=== PATIENT | male | born 1950 | race Hispanic/Latino ===

== ENCOUNTER 2017-04-19 16:21 | Observation (INO) | payer MEDICARE ==
[2017-04-19] MEDS ORDERED: POTASSIUM CHLORIDE 20 MEQ TABLET.SA PO ONE ×3 (16:54→22:51)
[2017-04-19] MEDS ORDERED: POTASSIUM CHLORIDE 20 MEQ TABLET.SA ONE (17:01)
[2017-04-19] MEDS: POTASSIUM CHLORIDE 100 ML IV SCH ×4 (17:07→20:31)
[2017-04-19] MEDS ORDERED: NORMAL SALINE 1,000 ML IV PRN (17:08)
[2017-04-19 17:13] LABS: Magnesium 1.9 mg/dL (1.2-2.8); Troponin I Less than 0.017 ng/ml (0.00-0.10)
--- NOTE | 2017-04-19 17:27 | ERNOTE ---
Medical Problem HPI - General Chief Complaint: General Assessment Time Seen by Provider: 04/19/17 16:27 Source: patient - Immun/Allergies/Home Medications Immunizations: IMMUNIZATION HX Immunizations Up to Date Yes History of Influenza Vaccine Yes Hx Pneumococcal Vaccination No Allergies/Adverse Reactions: Allergies No Known Allergies Allergy (Verified 07/02/15 09:14) Home Medications: HOME MEDICATIONS Aspirin [Aspirin Enteric Coated] 81 mg PO DAILY 11/10/14 [Last Taken Unknown] Esomeprazole Magnesium [Nexium] 20 mg PO DAILY 11/10/14 [Last Taken Unknown] Metoprolol Tartrate 100 mg PO BID 11/10/14 [Last Taken Unknown] Furosemide [Lasix] 80 mg PO DAILY@1100 #30 tablet 11/17/14 [Last Taken 07/01/15] ALPRAZolam [Xanax] 0.25 mg PO DAILY 07/02/15 [Last Taken Unknown] HYDROcodone/ACETAMINOPHEN [[place] 5-325 Tablet] 1 tab PO Q4H PRN 07/02/15 [Last Taken Unknown] Cholecalciferol (Vitamin D3) [Vitamin D3] 1,000 unit PO DAILY 04/19/17 [Last Taken Unknown] Cyanocobalamin (Vitamin B-12) [Vitamin B12] 1,000 mcg PO DAILY 04/19/17 [Last Taken Unknown] - History of Present History Narrative: Patient had been in a flare of his congestive heart failure, he was aggressively diuresed by Dr. Tan. Due the course of this diuresis his potassium inadvertently fell to 1.9. He now feels somewhat weak and Dr. Tan sent him into emergency department for evaluation and possible admission. Timing: constant Severity: moderate Review of Systems - Review of Systems Constitutional: Present: See HPI, weakness EYE: Present: no symptoms reported ENT: Present: no symptoms reported Respiratory: Present: no symptoms reported Cardiology: Present: no symptoms reported Gastrointestinal/Abdominal: Present: no symptoms reported Genitourinary: Present: no symptoms reported Musculoskeletal: Present: no symptoms reported Skin: Present: no symptoms reported Neurological: Present: no symptoms reported Endocrine: Present: no symptoms reported Hematologic/Lymphatic: Present: no symptoms reported Psych: Present: no symptoms reported - Patient's Past Medical History Patient History - Medical: Other Patient History - Cardiac/Respiratory: CHF, Hypertension Patient History - Cancer: Colon Patient History - Surgical Procedures: Colonoscopy, Total Knee Replacement Patient History - Other: None - Family History Mother Family History - Medical: Family History - Cardiac/Respiratory: COPD Father Family History - Medical: Family History - Cardiac/Respiratory: Aneurysm - Social History Living Situations: home Abuse History: No History of abuse Psych History: No pertinent hx Smoking Status: Former smoker Have you smoked in the past 12 months: No Do you dip or chew tobacco: No Alcohol Use: occasionally Drug Use: none - Immunizations Immunizations Up to Date: Yes Hx Pneumococcal Vaccination: No History of Influenza Vaccine: Yes Physical Exam - Physical Exam General Appearance: Present: wd/wn, alert, mild distress Eye Exam: Normal inspection: bilateral, PERRL: bilateral Ears, Nose, Throat: Present: normal ENT inspection, H, normal pharynx Neck: Present: normal inspection, nontender Respiratory: Present: no respiratory distress, normal breath sounds, no accessory muscle use, chest nontender, lungs clear Cardiovascular/Chest: Present: regular rate, rhythm, no murmur, normal peripheral pulses Gastrointestinal/Abdominal: Present: normal bowel sounds, nontender, nondistended, soft, no organomegaly Rectal Exam: Present: deferred Back Exam: Present: normal inspection, normal range of motion Extremity Exam: Present: normal inspection, non-tender, no edema, normal range of motion Neurological Exam: Present: alert, oriented, normal mood/affect Skin Exam: Present: normal color, warm/dry Lymphatic Exam: Present: no adenopathy ED Progress - Results and Orders Patient's Lab Results:: I have reviewed the patient's lab results. - Vital Signs Patient's Vital Signs:: I have reviewed the patient's vital signs. Vital Signs: Vital Signs 04/19/17 16:40 Temperature 36.7 C Pulse Rate 66 Respiratory 13 Rate Blood Pressure 152/84 O2 Sat by Pulse 95 Oximetry - EKG EKG: NSR EKG read: Reviewed by me - Progress/Reassessment Chief Complaint: General Assessment Plan - Plan Plan: Given the fact that the patient has been having some weakness and he has some subtle T-wave changes as well as some questionable U waves on the EKG patient will be admitted for progressive replacement of his potassium. Departure - Departure Clinical Impression: Hypokalemia Disposition: [facility] Condition: Fair Referrals: Amrit Tan MD [Primary Care Provider] - - Critical Care Total Time (mins): 35 Critical Care: Patient will require fairly aggressive replacement of his potassium. Patient was given 40 meq by mouth here and a total of 40 mEq over 4 separate riders were ordered hears well. He she'll be admitted to a monitored bed on the floor for continuing care by Dr. Alexander.
[2017-04-19] MEDS ORDERED: ALPRAZolam 0.25 MG TABLET PO PRN (20:16)
[2017-04-19] MEDS ORDERED: HYDROcodone/ACETAMINOPHEN 1 EACH TABLET PO PRN (20:16)
[2017-04-19] MEDS: METOPROLOL TARTRATE 100 MG TABLET PO SCH (21:15)
--- NOTE | 2017-04-19 21:15 | HP ---
Chief Complaint - Chief Complaint Date of Service: 04/19/17 Time of Service: 19:20 Chief Complaint: Hypokalemia History of Present Illness: 66 years old male adm to the hospital from ER with reports of hypokalemia. PMH significant for Hypertension, GERD, Arthritis, depression and pulmonary vascular congestion seen on CXR. Per pt last week he was having increased shortness of breath, swelling in hands and feet. He had CXR that showed pulmonary congestion. He was initiated on additional dose of diuretic x5 days. However during regimen he was feeling dizzy and continue to have shortness of breath but the swelling had resolved. 04/19/17 he had repeated BMP and CXR: ongoing pulmonary vascular congestion.Pt stated he was instructed by his doctor to come to the ER, his potassium 1.9. In ER Potassium level supplemented, will adm for observation, continue with potassium replacement and monitor on telemetry. - Patient's Past Medical History Patient History - Medical: Alcohol Abuse, Arthritis, Depression, GERD, Obesity Patient History - Cardiac/Respiratory: Hypertension Patient History - Cancer: Colon Patient History - Surgical Procedures: Colonoscopy, Total Knee Replacement - Right knee Patient History - Other: None - Family History Mother Family History - Medical: Family History - Cardiac/Respiratory: COPD Family History - Cancer: Lymphoma Father Family History - Medical: Family History - Cardiac/Respiratory: Aneurysm - Social History Living Situations: significant other Abuse History: No History of abuse Psych History: Hx of Anxiety, Hx of Depression Does anyone smoke in the home?: No Smoking Status: Never smoker Have you smoked in the past 12 months: No Do you dip or chew tobacco: No Alcohol Use: occasionally - daily 4-6 beers Drug Use: none - Immunizations Immunizations Up to Date: Yes Hx Pneumococcal Vaccination: No History of Influenza Vaccine: Yes Review Of Systems (GEN) - Review of Systems Generalized/Overall Review: Present: No Symptoms Reported EENTM: Present: No Symptoms Reported Respiratory: Present: Shortness of Breath Cardiac: Present: No Symptoms Reported Abdominal: Present: No Symptoms Reported Genitourinary: Present: No Symptoms Reported Musculoskeletal: Present: No Symptoms Reported Neurological: Present: Weakness, Other - dizziness Skin: Present: No Symptoms Reported Endocrine: Present: No Symptoms Reported Immunizations: IMMUNIZATION HX Immunizations Up to Date Yes History of Influenza Vaccine Yes Hx Pneumococcal Vaccination No Allergies/Adverse Reactions: Allergies Allergy/AdvReac Type Severity Reaction Status Date / Time No Known Allergies Allergy Verified 07/02/15 09:14 Home Medications: HOME MEDICATIONS Aspirin [Aspirin Enteric Coated] 81 mg PO DAILY 11/10/14 [Last Taken Unknown] Metoprolol Tartrate 100 mg PO BID 11/10/14 [Last Taken Unknown] Furosemide [Lasix] 80 mg PO DAILY@1100 #30 tablet 11/17/14 [Last Taken 07/01/15] ALPRAZolam [Xanax] 0.25 mg PO DAILY PRN 07/02/15 [Last Taken Unknown] HYDROcodone/ACETAMINOPHEN [[place] 5-325 Tablet] 1 tab PO Q4H PRN 07/02/15 [Last Taken Unknown] Amlodipine Besylate 5 mg PO DAILY 04/19/17 [Last Taken Unknown] Cholecalciferol (Vitamin D3) [Vitamin D3] 1,000 unit PO DAILY 04/19/17 [Last Taken Unknown] Cyanocobalamin (Vitamin B-12) [Vitamin B12] 500 mcg PO DAILY 04/19/17 [Last Taken Unknown] Escitalopram Oxalate [Lexapro] 20 mg PO DAILY 04/19/17 [Last Taken Unknown] Hydrochlorothiazide 12.5 mg PO DAILY 04/19/17 [Last Taken Unknown] Omeprazole 40 mg PO DAILY 04/19/17 [Last Taken Unknown] Potassium Chloride [Klor-Con M20] 40 meq PO DAILY 04/19/17 [Last Taken Unknown] Exam - Exam Vital Signs: Vital Signs - Last Taken Temp 36.6 C 04/19/17 18:50 Pulse 66 04/19/17 18:50 Resp 18 04/19/17 18:50 BP 125/68 04/19/17 18:50 Pulse Ox 93 04/19/17 18:50 Constitutional: Present: Alert, Oriented x3, Cooperative, Middle aged, Morbidly obese ENT Exam: Present: normal ENT inspection Eye Exam: bilateral eye: normal inspection Neck: Present: full range of motion Back Exam: Present: normal inspection Breasts: Present: Exam deferred Respiratory: Present: normal breath sounds Cardiovascular/Chest: Present: normal peripheral pulses, no chest tenderness, bradycardia Peripheral Pulses: dorsalis-pedis (R): 3+, dorsalis-pedis (L): 3+ Abdomen: Present: Normal bowel sounds, soft, nontender, nondistended /Rectal: Present: Exam deferred Extremity: Present: normal range of motion, non-tender, normal inspection Skin Exam: Present: normal color, warm/dry Lymphatic: Present: no adenopathy Neurologic: Present: oriented x 3 Appearance: Present: appropriate appearance, appropriate insight Eye contact: Present: cooperative, good eye contact Thoughts: Present: normal thought pattern Diagnostic Studies: Laboratory Results Magnesium 1.9 mg/dL (1.2-2.8) 04/19/17 14:35 Troponin I Less than 0.017 ng/ml (0.00-0.10) 04/19/17 14:35 CXR: On going cardiomegaly and pulmonary vascular congestion. Assessment/Plan - Narrative Narrative: Hypokalemia- secondary to aggressive diuresis Pt stated he was given HCTZ x 5days and potassium 40meq daily due to increased swellings to hands and legs pt completed regimen with repeated potassium level 1.9, mag 1.9 04/19/17 Repeated CXR: Ongoing cardiomegaly and pulmonary vascular congestion. Supplemented with IV KCL, continue monitoring and repeat EKG Continue on telemetry Hold Lasix Hypertension Monitor vital signs Q shift and as indicated may resume home dose of medications Will Hold Lasix and continue Lopressor Depression- stable Continue with home dose of Lexapro GERD Continue with omeprazole Alcohol abuse pt state he drink 4-6 beers daily Alcohol cessation edu provided [facility] protocol Code status: Full code GI ppx: Omeprazole DVT ppx: ambulate Time 35 minutes - Assessment/Plan (1) Hypokalemia Problem: Acute (2) GERD (gastroesophageal reflux disease) Problem: Chronic (3) Depression Problem: Chronic (4) Hypertension Problem: Chronic (5) Alcohol abuse Problem: Chronic
[2017-04-19 22:07] LABS: Magnesium 1.8 mg/dL (1.2-2.8)
[2017-04-19 22:12] LABS: Potassium 2.1 mmol/L (3.4-4.6)
[2017-04-19] MEDS ORDERED: POTASSIUM CHLORIDE 20 MEQ in NORMAL SALINE 1,000 ML IV PRN (22:17)
[2017-04-19] MEDS ORDERED: MAGNESIUM OXIDE 400 MG TABLET PO SCH (22:20)
[2017-04-19] MEDS ORDERED: POTASSIUM CHLORIDE 40 MEQ in NORMAL SALINE 1,000 ML IV SCH (22:30)
[2017-04-19] MEDS ORDERED: POTASSIUM CHLORIDE 20 MEQ in NORMAL SALINE 1,000 ML IV SCH (22:30)
[2017-04-20 06:34] LABS: Anion Gap 7.5 mmol/L (6.8-13.8); BUN/Creatinine Ratio 12.5 (9.0-21.6); Calcium * 8.5 mg/dL (7.9-10.9); Carbon Dioxide 35.6 mmol/L (24-32.6); Estimated Creat Clear 65.6; Magnesium 1.9 mg/dL (1.2-2.8)
[2017-04-20 06:37] LABS: Hematocrit 35.3 % (42.0-52.0); Hemoglobin 12.8 gm/dL (13.5-18.0); Mean Cell Volume 89.4 fl (78-100); Mean Corpuscular Hemoglobin 32.4 pg (27-31); Mean Corpuscular Hgb Conc 36.3 g/dl (32-36); Mean Platelet Volume 10.5 fl (6.0-9.5); Neutrophil # 7.2 K/mm3 (1.3-6.0); Neutrophil % 70.2 % (42-75.0); Platelet Count 290 K/mm3 (150-450); Red Blood Count 3.95 M/mm3 (4.7-6.0); Red Cell Distribution Width 13.2 % (11.5-14.0); White Blood Count 10.3 K/mm3 (4.0-10.5)
[2017-04-20 06:42] LABS: Potassium 2.1 mmol/L (3.4-4.6)
[2017-04-20] MEDS ORDERED: PANTOPRAZOLE SODIUM 40 MG TABLET.EC PO SCH (07:00)
[2017-04-20] MEDS: POTASSIUM CHLORIDE 100 ML IV SCH ×2 (07:41→08:58)
[2017-04-20] MEDS ORDERED: POT CHLORIDE/POT BICARB/CIT AC 25 MEQ TABLET.EFF PO ONE (08:20)
[2017-04-20] MEDS ORDERED: amLODIPine BESYLATE 5 MG TABLET PO SCH (09:00)
[2017-04-20] MEDS ORDERED: CHOLECALCIFEROL 1,000 UNIT CAPSULE PO SCH (09:00)
[2017-04-20] MEDS ORDERED: POTASSIUM CHLORIDE 20 MEQ TABLET.SA PO SCH ×2 (09:00)
[2017-04-20] MEDS ORDERED: CYANOCOBALAMIN 1,000 MCG TABLET PO SCH (09:00)
[2017-04-20] MEDS ORDERED: ESCITALOPRAM OXALATE 10 MG TAB PO SCH (09:00)
[2017-04-20] MEDS ORDERED: ASPIRIN 81 MG TABLET.DR PO SCH (09:00)
[2017-04-20] MEDS: SPIRONOLACTONE 25 MG TABLET PO SCH ×2 (09:03→09:16)
[2017-04-20] MEDS: METOPROLOL TARTRATE 100 MG TABLET PO SCH (09:04)
[2017-04-20] MEDS: MAGNESIUM OXIDE 400 MG TABLET PO SCH ×2 (09:04→13:24)
[2017-04-20 14:16] LABS: Albumin * 2.7 gm/dl (3.4-5.0); Anion Gap 2.8 mmol/L (6.8-13.8); BUN/Creatinine Ratio 13.8 (9.0-21.6); Bilirubin, Total 0.8 mg/dL (0.0-1.1); Ca. Corrected For Albumin 9.4 mg/dL (8.4-10.2); Calcium * 8.7 mg/dL (7.9-10.9); Carbon Dioxide 40.7 mmol/L (24-32.6); Potassium 3.5 mmol/L (3.4-4.6); Total Protein 7.8 gm/dL (6.2-8.2)
[2017-04-20 14:39] VITALS: BP 129/68
--- NOTE | 2017-04-20 14:56 | DS ---
(1) Hypokalemia Problem: Acute Description of Stay: 66-year-old black male was admitted because of severe hypokalemia with potassium of 1.9 and sodium of 125 this was due to the diuretic that was used to treat CHF. EKG showed suspicious U-wave with normal QT. He was admitted to short stay and received potassium supplement. Potassium went up to 3.5 but sodium is still at 125 but he is asymptomatic and feeling better Procedures Performed: none Discharge Disposition: Home self care Disposition: Home self-care Condition: Fair Discharge Activity: Activity as tolerated Discharge Diet: Low salt Referrals: Amrit Tan MD [Primary Care Provider] - Additional Patient Instructions (free text): CMP in 1 week Follow-up with Dr. Tan in 3 weeks Prescriptions (Any new or edited meds): Spironolactone [Aldactone] 25 mg PO DAILY #30 tablet Complete Home Medications List: Complete Home Medication List: Aspirin [Aspirin Enteric Coated] 81 mg PO DAILY 11/10/14 Metoprolol Tartrate 100 mg PO BID 11/10/14 Furosemide [Lasix] 80 mg PO DAILY@1100 #30 tablet 11/17/14 ALPRAZolam [Xanax] 0.25 mg PO DAILY PRN 07/02/15 HYDROcodone/ACETAMINOPHEN [[place] 5-325 Tablet] 1 tab PO Q4H PRN 07/02/15 Amlodipine Besylate 5 mg PO DAILY 04/19/17 Cholecalciferol (Vitamin D3) [Vitamin D3] 1,000 unit PO DAILY 04/19/17 Cyanocobalamin (Vitamin B-12) [Vitamin B12] 500 mcg PO DAILY 04/19/17 Escitalopram Oxalate [Lexapro] 20 mg PO DAILY 04/19/17 Omeprazole 40 mg PO DAILY 04/19/17 Potassium Chloride [Klor-Con M20] 40 meq PO DAILY 04/19/17 Spironolactone [Aldactone] 25 mg PO DAILY #30 tablet 04/20/17
[2017-04-20] MEDS ORDERED: POTASSIUM CHLORIDE 40 MEQ in NORMAL SALINE 1,000 ML IV SCH (22:30)
== END 2017-04-20 15:29 | disposition home or self-care (01) ==
LOC: ER 16:21 → MS 17:18
PROVIDERS: ADMIT Internal Medicine; ATTEND Internal Medicine
DX: E87.6 Hypokalemia (principal); I50.9 Heart failure, unspecified; I10 Essential (primary) hypertension; F32.9 Major depressive disorder, single episode, unspecified; K21.9 Gastro-esophageal reflux disease without esophagitis; F10.10 Alcohol abuse, uncomplicated
CPT/HCPCS: 36415; 80048; 80053; 83735; 84132; 84484; 85025; 93005; 96365; 96366; 99285; G0378

== ENCOUNTER 2018-11-27 17:20 | Inpatient (IN) ==
[2018-11-27] MEDS ORDERED: POTASSIUM CHLORIDE 20 MEQ TABLET.SA PO ONE ×2 (17:52→23:30)
[2018-11-27] MEDS ORDERED: NORMAL SALINE 1,000 ML IV ONE ×2 (17:54→18:13)
[2018-11-27] MEDS: POTASSIUM CHLORIDE IN WATER 100 ML IV SCH ×4 (18:23→21:35)
--- NOTE | 2018-11-27 18:27 | ERNOTE ---
Medical Problem HPI - Narrative Date of Service: 11/27/18 - General Chief Complaint: General Assessment Time Seen by Provider: 11/27/18 17:43 Source: patient, RN/MD Exam Limitations: no limitations - Immun/Allergies/Home Medications Immunizations: IMMUNIZATION HX Immunizations Up to Date Yes History of Influenza Vaccine No Hx Pneumococcal Vaccination No Allergies/Adverse Reactions: Allergies No Known Allergies Allergy (Verified 11/27/18 17:40) Home Medications: HOME MEDICATIONS Aspirin [Aspirin Enteric Coated] 81 mg PO DAILY 11/10/14 [Last Taken Unknown] atorvastatin 20 mg tablet 20 mg PO DAILY #90 tab 07/05/18 [Last Taken Unknown] omeprazole 40 mg capsule,delayed release 40 mg PO DAILY #90 cap 07/05/18 [Last Taken Unknown] Metoprolol Tartrate 100 mg PO BID 11/27/18 [Last Taken Unknown] - History of Present History Narrative: This patient is a 68-year-old male who was sent in because of low potassium and sodium. Dr. Tan saw the patient about a week ago with what appeared to be a swollen and infected foot. He started him on Zaroxolyn in addition to his Lasix and potassium. The patient has lost weight. He came today for follow-up and labs were drawn. His potassium came back at 1.6. His sodium is 122. He has had no vomiting or diarrhea. He has a history of colon cancer long ago. He has had pelvic lymph node enlargement. He has no history of CHF. He has been falling daily the last 3 days. Review of Systems - Review of Systems Constitutional: Absent: fever, chills EYE: Absent: blurred vision, double vision ENT: Absent: ear pain, nose congestion, nasal drainage, sore throat Respiratory: Present: shortness of breath, cough Cardiology: Present: other - He has fainted or fallen daily last 3 days.. Absent: chest pain, palpitations Gastrointestinal/Abdominal: Absent: nausea, vomiting, diarrhea, constipation, abdominal pain Genitourinary: Absent: frequency, pain, dysuria, hematuria Musculoskeletal: Absent: joint pain Skin: Present: other - He had redness and warmth of his feet. He has no bruise under the right armpit. Neurological: Present: dizziness/light-headedness, weakness. Absent: anxiety, depressed, headache Endocrine: Present: other - He has had weight loss. 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 Gerardo, adenocarcinoma tubulovillous polyp, infiltrating submucosa, free margin of 1mm. History of total knee replacement Onset Date: 2000 right Status post epidural steroid injection Onset Date: 01/2006 FM[facility] L4-5 01/2006, 08/2007, 11/2007 Status post right knee replacement Onset Date: 11/2000 Family History: Family History (Last Reviewed 11/27/18 @ 18:24 by Champ Dai MD) Father Brain aneurysm, Onset Age: 71 age 71 Mother Cancer, Onset Age: 67 Cancer of Lymph nodes age 67 Sister Alive and well x1 Son Alive and well x2 Social History: Preferred Language [place] Do you have any hinduism or No cultural preference? Smoking Status Never smoker Abuse History No History of abuse Psych History Hx of Anxiety,Hx of Depression Alcohol Use heavy Drug Use none (Last Updated 11/27/18 @ 14:59 by Amrit Tan MD) No Social History Section defined Physical Exam - Physical Exam General Appearance: Present: alert, no apparent distress, obese Head Exam: Present: normal inspection, no evidence of injury Eye Exam: Normal inspection: bilateral Ears, Nose, Throat: Present: normal ENT inspection, normal pharynx Neck: Present: normal inspection, nontender. Absent: lymphadenopathy (R), lymphadenopathy (L) Respiratory: Present: no respiratory distress, normal breath sounds, no accessory muscle use, chest nontender, lungs clear Cardiovascular/Chest: Present: regular rate, rhythm, no murmur Gastrointestinal/Abdominal: Present: normal bowel sounds, nontender, nondistended, soft, no organomegaly Back Exam: Present: other - He has ecchymosis noted of the posterior chest wall near the right axilla. Extremity Exam: Present: other - He has edema of his lower extremities. The skin of the feet appears to be cracked. There is no drainage at this time. They are not warm. There is mild erythema. Neurological Exam: Present: alert, oriented, normal mood/affect Skin Exam: Present: normal color, warm/dry Progress - Date and Time Seen: Date and Time: I spoke with Dr. Tan before the patient arrived. After the patient arrived, I he evaluated him. And an EKG was done. An IV was started. Orders were placed. I spoke with Dr. Alexander who agreed to admit the patient. - Results and Orders Patient's Lab Results:: I have reviewed the patient's lab results. - Vital Signs Patient's Vital Signs:: I have reviewed the patient's vital signs. Vital Signs: Vital Signs 11/27/18 17:21 Temperature 36.5 C Pulse Rate 61 Respiratory Rate 19 Blood Pressure 156/81 H O2 Sat by Pulse Oximetry 98 - EKG EKG #1 EKG read: Interp. by me EKG Comments: Normal sinus rhythm Rate 61 Intraventricular conduction delay Nonspecific ST and T wave abnormality No significant change from EKG dated 04/20/17 - Progress/Reassessment Chief Complaint: General Assessment Departure Clinical Impression: Hypokalemia, Hyponatremia - Departure Disposition: Still a patient Condition: Fair
[2018-11-27 18:40] LABS: Anion Gap 6.5 mmol/L (6.8-13.8); BUN/Creatinine Ratio 14.5 (9.0-21.6); Calcium * 9.1 mg/dL (7.9-10.9); Carbon Dioxide 40.8 mmol/L (24-32.6); Estimated Creat Clear 48.1
[2018-11-27 18:43] LABS: Potassium 2.3 mmol/L (3.4-4.6)
--- NOTE | 2018-11-27 19:00 | HP ---
Chief Complaint - Chief Complaint Date of Service: 11/27/18 Time of Service: 18:54 Chief Complaint: electrolyte imbalance History of Present Illness: Yaakov Blackwood is a 68-year-old white male with past medical history of rectal adenocarcinoma, GERD, depression, hypertension, lymphedema who was admitted on 11/27/2018 because of electrolyte imbalance. The patient 10 days ago had significant edema of his lower extremities which was weeping. The patient was started on Metolazone in addition to his Lasix and potassium by his primary care physician. Today he followed up with his primary care physician and his repeat blood work showed his sodium to be 122 with a potassium of 1.7. He was told to go to the emergency room. The patient received the 1 K rider and oral potassium 1 and he was started also on some 0.9 NSS. His repeat blood work shows his potassium to have gone up to 2.2 but his Sodium went down to 117. He had been having some lightheadedness with daily falls in the last 3 days at home. His EKG showed normal sinus rate came with flattening of his T waves although this was not significantly changed from his prior EKG in 2017. He denies congestive heart failure, liver failure, kidney failure. He does have a history of pelvic lymph node enlargement. Medical History (Last Reviewed 11/27/18 @ 18:24 by Champ Dai MD) Abnormal stress test Anemia, iron deficiency Asthma Charcot's joint of foot, non-diabetic Chronic back pain GERD (gastroesophageal reflux disease) H/O echocardiogram Onset Date: 11/17/14 EF 62%, LVH Moderate, Pulmonary Hypertension Heart murmur Hyperlipidemia Hypertension Left knee DJD Onset Date: 12/2017 Normal cardiac stress test Onset Date: 05/03/17 No angina, isolated PVC, Non-specific ST-T wave changes, nuclear imaging pending Parotid tumor Peripheral neuropathy Renal failure Onset Date: 2009 Rotator cuff tear Onset Date: 10/2017 Sciatica left leg Sigmoidoscopy performed Onset Date: 2010 Spinal stenosis Onset Date: 01/2006 Lumbar, L4-5 Surgical History: Surgical History (Last Reviewed 11/27/18 @ 18:24 by Champ Dai MD) History of arthroscopic knee surgery Onset Date: 1980 History of colonoscopy Onset Date: 04/06/10 with biopsy, Dr. Gerardo, adenocarcinoma tubulovillous polyp, infiltrating submucosa, free margin of 1mm. History of total knee replacement Onset Date: 2000 right Status post epidural steroid injection Onset Date: 01/2006 FM[facility] L4-5 01/2006, 08/2007, 11/2007 Status post right knee replacement Onset Date: 11/2000 Family History: Family History (Last Reviewed 11/27/18 @ 18:24 by Champ Dai MD) Father Brain aneurysm, Onset Age: 71 age 71 Mother Cancer, Onset Age: 67 Cancer of Lymph nodes age 67 Sister Alive and well x1 Son Alive and well x2 Social History: Preferred Language Maltese Do you have any taoism or No cultural preference? Smoking Status Never smoker Abuse History No History of abuse Psych History Hx of Anxiety,Hx of Depression Alcohol Use heavy Drug Use none (Last Updated 11/27/18 @ 14:59 by Amrit Tan MD) No Social History Section defined Review Of Systems (GEN) - Review of Systems Generalized/Overall Review: Absent: Weakness, Chills, Fever EENTM: Absent: Blurred Vision Cardiac: Present: Edema. Absent: Chest Pain, Palpitations, Syncope Abdominal: Absent: Nausea, Vomiting, Abdominal Pain Genitourinary: Absent: Urgency, Frequency Musculoskeletal: Present: Joint Pain, Joint Swelling. Absent: Back Pain Neurological: Absent: Headache, Anxiety, Depressed Skin: Present: Lesions Endocrine: Absent: Intolerance to Cold, Intolerance to Heat Immunizations: IMMUNIZATION HX Immunizations Up to Date Yes History of Influenza Vaccine No Hx Pneumococcal Vaccination No Allergies/Adverse Reactions: Allergies Allergy/AdvReac Type Severity Reaction Status Date / Time No Known Allergies Allergy Verified 11/27/18 17:40 Home Medications: HOME MEDICATIONS Aspirin [Aspirin Enteric Coated] 81 mg PO DAILY 11/10/14 [Last Taken Unknown] atorvastatin 20 mg tablet 20 mg PO DAILY #90 tab 07/05/18 [Last Taken Unknown] omeprazole 40 mg capsule,delayed release 40 mg PO DAILY #90 cap 07/05/18 [Last Taken Unknown] Metoprolol Tartrate 100 mg PO BID 11/27/18 [Last Taken Unknown] Cephalexin 500 mg PO BID 11/28/18 [Last Taken Unknown] Escitalopram Oxalate [Lexapro] 20 mg PO DAILY 11/28/18 [Last Taken Unknown] Multivitamin [Multivitamins] 1 ea PO DAILY 11/28/18 [Last Taken Unknown] Nystatin/Triamcin [Nystatin-Triamcinolone Ointm] 60 gm TOPICAL BID 11/28/18 [Last Taken Unknown] Exam - Exam Vital Signs: Vital Signs - Last Taken Temp 36.5 C 11/27/18 17:21 Pulse 59 L 11/27/18 18:34 Resp 18 11/27/18 18:34 BP 156/83 H 11/27/18 18:34 Pulse Ox 98 11/27/18 18:34 Constitutional: Present: Alert, Oriented x3, Cooperative, Morbidly obese ENT Exam: Present: hearing grossly normal Eye Exam: bilateral eye: normal inspection, PERRL, EOMI Neck: Present: supple Respiratory: Present: decreased breath sounds, No rales, No wheezing Cardiovascular/Chest: Present: regular rate, rhythm, no JVD, no murmur Abdomen: Present: Normal bowel sounds, soft, nontender, obese Extremity: Present: no calf tenderness, lower extremity edema Skin Exam: Present: other - skin ulcers, right foot, dorsum Diagnostic Studies: Abnormal Lab Results 11/27/18 Range/Units 18:27 Sodium 117 L* (132-142) mmol/L Plasma Sodium 117 L* (130-142) mmol/L Potassium 2.3 L* D (3.4-4.6) mmol/L Chloride 72 L (97-106) mmol/L Carbon Dioxide 40.8 H (24-32.6) mmol/L Anion Gap 6.5 L (6.8-13.8) mmol/L Creatinine 1.59 H (0.4-1.4) mg/dL Est GFR (Non-Af Amer) 46 L (60-130) mL/min Random Glucose 131 H (70-110) mg/dL Laboratory Results Sodium 117 mmol/L (132-142) L* 11/27/18 18:27 Plasma Sodium 117 mmol/L (130-142) L* 11/27/18 18:27 Potassium 2.3 mmol/L (3.4-4.6) L* D 11/27/18 18:27 Chloride 72 mmol/L (97-106) L 11/27/18 18:27 Carbon Dioxide 40.8 mmol/L (24-32.6) H 11/27/18 18:27 Anion Gap 6.5 mmol/L (6.8-13.8) L 11/27/18 18:27 BUN 23 mg/dL (6-23) 11/27/18 18:27 Creatinine 1.59 mg/dL (0.4-1.4) H 11/27/18 18:27 Est GFR (Non-Af Amer) 46 mL/min (60-130) L 11/27/18 18:27 BUN/Creatinine Ratio 14.5 (9.0-21.6) 11/27/18 18:27 Random Glucose 131 mg/dL (70-110) H 11/27/18 18:27 Calcium 9.1 mg/dL (7.9-10.9) 11/27/18 18:27 Assessment/Plan - Assessment/Plan (1) Hypokalemia Assessment: due to diuretics. repeat k was 2.2 . He is on his 2nd K rider now. Problem: Acute (2) Hyponatremia Assessment: due to diuretics. likely chronic, severe. His lightheadedness and falling down is unclear if it is part of orthostasis from his dehydration or part of hyponatremia syndrome. His follow up Na is down to 117. will start patient on 100 ml 3% NaCl bolus . check Na in 2 hours. Will Problem: Acute (3) Lymphedema of extremity Problem: Acute (4) Cellulitis Assessment: continue with antibiotics. Problem: Acute Qualifiers: Site of cellulitis of extremity: lower extremity Laterality: right Qualified Code(s): L03.115 - Cellulitis of right lower limb (5) Hypertension Problem: Chronic Qualifiers: Hypertension type: essential hypertension Qualified Code(s): I10 - Essential (primary) hypertension (6) Rectal adenocarcinoma Problem: Chronic
[2018-11-27] MEDS: SODIUM CHLORIDE 3 % 500 ML IV SCH (20:17)
[2018-11-27] MEDS ORDERED: CEPHALEXIN MONOHYDRATE 250 MG CAPSULE ONE (21:27)
[2018-11-27] MEDS: CEPHALEXIN MONOHYDRATE 500 MG CAPSULE PO SCH (21:34)
[2018-11-27] MEDS: METOPROLOL TARTRATE 100 MG TABLET PO SCH (21:36)
[2018-11-27 22:59] LABS: Anion Gap 5.8 mmol/L (6.8-13.8); BUN/Creatinine Ratio 15.1 (9.0-21.6); Calcium * 8.3 mg/dL (7.9-10.9); Carbon Dioxide 41.3 mmol/L (24-32.6); Estimated Creat Clear 52.4
[2018-11-27 23:10] LABS: Potassium 2.1 mmol/L (3.4-4.6)
[2018-11-28 01:29] LABS: Anion Gap 3.9 mmol/L (6.8-13.8); BUN/Creatinine Ratio 14.3 (9.0-21.6); Calcium * 8.3 mg/dL (7.9-10.9); Carbon Dioxide 39.1 mmol/L (24-32.6); Estimated Creat Clear 49.7
[2018-11-28] MEDS ORDERED: POTASSIUM CHLORIDE 20 MEQ TABLET.SA PO ONE ×2 (01:30→03:00)
[2018-11-28] MEDS ORDERED: POTASSIUM CHLORIDE IN WATER 100 ML IV ONE (02:00)
[2018-11-28] MEDS: MAGNESIUM OXIDE 400 MG TABLET PO SCH ×3 (02:08→21:06)
[2018-11-28 05:27] LABS: Anion Gap 7.1 mmol/L (6.8-13.8); BUN/Creatinine Ratio 16.4 (9.0-21.6); Calcium * 8.6 mg/dL (7.9-10.9); Carbon Dioxide 39.5 mmol/L (24-32.6); Estimated Creat Clear 59.8; Magnesium 2.1 mg/dL (1.2-2.8); Potassium 2.6 mmol/L (3.4-4.6)
[2018-11-28] MEDS: PANTOPRAZOLE SODIUM 40 MG TABLET.EC PO SCH (07:18)
[2018-11-28] MEDS: CEPHALEXIN MONOHYDRATE 500 MG CAPSULE PO SCH ×2 (07:18→21:06)
[2018-11-28] MEDS: METOPROLOL TARTRATE 100 MG TABLET PO SCH ×2 (08:11→21:06)
[2018-11-28] MEDS: ASPIRIN 81 MG TABLET.DR PO SCH (08:11)
--- NOTE | 2018-11-28 08:49 | PN ---
Subjective - Date and Time Seen Date: 11/28/18 Time: 08:42 Subjective Narrative: Patient AAO x3. K is 2.6 and Na is 125. Objective - Review of Systems Generalized/Overall Review: Denies: Weakness, Chills, Fever EENTM: Denies: Blurred Vision Respiratory: Denies: Cough, Shortness of Breath Cardiac: Reports: Edema. Denies: Chest Pain, Palpitations Abdominal: Denies: Nausea, Vomiting Genitourinary Symptoms: Denies: Urgency, Frequency Neurological: Denies: Headache Skin: Reports: Lesions - sores on doersum of right foot Endocrine: Denies: Excessive Sweating - Vitals Vitals: Last Vital Signs Temp 36.7 C 11/28/18 06:00 Pulse 53 L 11/28/18 08:11 Resp 18 11/28/18 06:00 BP 137/83 11/28/18 08:11 Pulse Ox 94 11/28/18 06:00 - Abnormal Lab Findings Abnormal Lab Findings: Abnormal Lab Results 11/27/18 11/27/18 11/28/18 Range/Units 18:27 22:35 01:19 Sodium 117 L* 123 L 120 L (132-142) mmol/L Plasma Sodium 117 L* 124 L 121 L (130-142) mmol/L Potassium 2.3 L* D 2.1 L* 2.0 L* (3.4-4.6) mmol/L Chloride 72 L 78 L 79 L (97-106) mmol/L Carbon Dioxide 40.8 H 41.3 H 39.1 H (24-32.6) mmol/L Anion Gap 6.5 L 5.8 L 3.9 L (6.8-13.8) mmol/L Creatinine 1.59 H 1.46 H 1.54 H (0.4-1.4) mg/dL Est GFR (Non-Af Amer) 46 L 51 L 48 L (60-130) mL/min Random Glucose 131 H 153 H 164 H (70-110) mg/dL 11/28/18 Range/Units 05:10 Sodium 125 L (132-142) mmol/L Plasma Sodium 125 L (130-142) mmol/L Potassium 2.6 L D (3.4-4.6) mmol/L Chloride 81 L (97-106) mmol/L Carbon Dioxide 39.5 H (24-32.6) mmol/L Anion Gap (6.8-13.8) mmol/L Creatinine (0.4-1.4) mg/dL Est GFR (Non-Af Amer) 59 L D (60-130) mL/min Random Glucose 123 H (70-110) mg/dL - Exam Constitutional: Present: Alert, Oriented x3, Cooperative, Obese, Morbidly obese ENT Exam: Present: hearing grossly normal Neck: Present: supple Respiratory: Present: decreased breath sounds, No rales, No wheezing Cardiovascular/Chest: Present: regular rate, rhythm, no JVD, no murmur Abdomen: Present: Normal bowel sounds, soft, nontender, nondistended Extremity: Present: no pedal edema, no calf tenderness Assessment/Plan Plan Narrative: Continue with present management. - Problems/Diagnosis (1) Hypokalemia Problem: Acute Narrative: with EKG changes. improved. viola do Klor Con 40 meq PO TID WM. (2) Hyponatremia Problem: Acute Narrative: likely chronic, symptomatic. had gone up by 8 meq in 12 hours. will decrease hypertonic saline to 10 mg/hour and repeat BMP at 10 a.m. (3) Lymphedema of extremity Problem: Acute Narrative: from h/o rectal adenocarcinoma and possible LAD vs edema from PHTN. follow up Echo. has CTS of abdomen scheduled by PCP. (4) Cellulitis Problem: Acute Qualifiers: Site of cellulitis of extremity: lower extremity Laterality: right Qualified Code(s): L03.115 - Cellulitis of right lower limb Narrative: continue with antibioitics. (5) Hypertension Problem: Chronic Qualifiers: Hypertension type: essential hypertension Qualified Code(s): I10 - Essential (primary) hypertension (6) Rectal adenocarcinoma Problem: Chronic Narrative: history of.
[2018-11-28] MEDS ORDERED: POTASSIUM CHLORIDE 10 MEQ TABLET.SA PO SCH (09:00)
[2018-11-28] MEDS: ENOXAPARIN SODIUM 40 MG/0.4 ML SYRG SC SCH (09:33)
[2018-11-28] MEDS: POTASSIUM CHLORIDE 20 MEQ TABLET.SA PO SCH ×3 (09:34→17:04)
[2018-11-28 12:53] LABS: Anion Gap 5.2 mmol/L (6.8-13.8); BUN/Creatinine Ratio 13.5 (9.0-21.6); Calcium * 8.8 mg/dL (7.9-10.9); Carbon Dioxide 38.4 mmol/L (24-32.6); Estimated Creat Clear 54.3; Potassium 2.6 mmol/L (3.4-4.6)
[2018-11-28] MEDS ORDERED: POTASSIUM CHLORIDE IN WATER 100 ML IV SCH (13:15)
[2018-11-28 17:49] LABS: Anion Gap 6.6 mmol/L (6.8-13.8); BUN/Creatinine Ratio 15.3 (9.0-21.6); Carbon Dioxide 38.3 mmol/L (24-32.6); Estimated Creat Clear 55.9; Magnesium 2.4 mg/dL (1.2-2.8); Potassium 2.9 mmol/L (3.4-4.6)
[2018-11-28] MEDS: SODIUM CHLORIDE 3 % 500 ML IV SCH (21:05)
[2018-11-28 22:57] LABS: Anion Gap 6.4 mmol/L (6.8-13.8); BUN/Creatinine Ratio 17.3 (9.0-21.6); Calcium * 9.2 mg/dL (7.9-10.9); Carbon Dioxide 38.9 mmol/L (24-32.6); Estimated Creat Clear 60.3; Potassium 3.3 mmol/L (3.4-4.6)
[2018-11-29 05:32] LABS: Anion Gap 4.6 mmol/L (6.8-13.8); BUN/Creatinine Ratio 15.2 (9.0-21.6); Calcium * 8.7 mg/dL (7.9-10.9); Carbon Dioxide 36.7 mmol/L (24-32.6); Estimated Creat Clear 61.2; Potassium 3.3 mmol/L (3.4-4.6)
[2018-11-29] MEDS: PANTOPRAZOLE SODIUM 40 MG TABLET.EC PO SCH (07:14)
[2018-11-29] MEDS: CEPHALEXIN MONOHYDRATE 500 MG CAPSULE PO SCH ×2 (07:14→20:58)
[2018-11-29] MEDS: ASPIRIN 81 MG TABLET.DR PO SCH (08:50)
[2018-11-29] MEDS: METOPROLOL TARTRATE 100 MG TABLET PO SCH ×2 (08:51→21:02)
[2018-11-29] MEDS: POTASSIUM CHLORIDE 20 MEQ TABLET.SA PO SCH ×3 (08:51→17:05)
[2018-11-29] MEDS: ENOXAPARIN SODIUM 40 MG/0.4 ML SYRG SC SCH (08:51)
[2018-11-29] MEDS: MAGNESIUM OXIDE 400 MG TABLET PO SCH ×2 (08:51→20:59)
--- NOTE | 2018-11-29 09:40 | PN ---
Subjective - Date and Time Seen Date: 11/29/18 Time: 09:29 Subjective Narrative: Has been feeling better. Na is 126. K is 3.3. He admits to drinking berr 4-7 bottles a day Objective - Review of Systems Generalized/Overall Review: Denies: Chills, Fever EENTM: Denies: Blurred Vision Respiratory: Denies: Cough, Shortness of Breath Cardiac: Reports: Edema. Denies: Chest Pain, Palpitations Abdominal: Denies: Nausea, Vomiting Genitourinary Symptoms: Denies: Itching, Urgency, Frequency Neurological: Denies: Anxiety, Depressed Skin: Reports: Lesions - dry scqabs, doesum of right foot Endocrine: Denies: Excessive Sweating - Vitals Vitals: Last Vital Signs Temp 36.7 C 11/29/18 08:00 Pulse 62 11/29/18 08:51 Resp 20 11/29/18 08:00 BP 156/84 H 11/29/18 08:51 Pulse Ox 98 11/29/18 08:00 - Abnormal Lab Findings Abnormal Lab Findings: Abnormal Lab Results 11/28/18 11/28/18 11/28/18 Range/Units 12:45 17:30 22:45 Sodium 124 L 126 L 129 L (132-142) mmol/L Plasma Sodium 125 L 127 L 129 L (130-142) mmol/L Potassium 2.6 L 2.9 L 3.3 L (3.4-4.6) mmol/L Chloride 83 L 84 L 87 L (97-106) mmol/L Carbon Dioxide 38.4 H 38.3 H 38.9 H (24-32.6) mmol/L Anion Gap 5.2 L 6.6 L 6.4 L (6.8-13.8) mmol/L Creatinine 1.41 H (0.4-1.4) mg/dL Est GFR (Non-Af Amer) 53 L 55 L (60-130) mL/min Random Glucose 147 H 136 H 123 H (70-110) mg/dL 11/29/18 Range/Units 05:20 Sodium 126 L (132-142) mmol/L Plasma Sodium 126 L (130-142) mmol/L Potassium 3.3 L (3.4-4.6) mmol/L Chloride 88 L (97-106) mmol/L Carbon Dioxide 36.7 H (24-32.6) mmol/L Anion Gap 4.6 L (6.8-13.8) mmol/L Creatinine (0.4-1.4) mg/dL Est GFR (Non-Af Amer) (60-130) mL/min Random Glucose 117 H (70-110) mg/dL - Exam Constitutional: Present: Alert, Oriented x3, Cooperative, Obese ENT Exam: Present: hearing grossly normal Neck: Present: supple Respiratory: Present: decreased breath sounds, No wheezing Cardiovascular/Chest: Present: regular rate, rhythm, no JVD, no murmur Abdomen: Present: Normal bowel sounds, soft, nontender, obese Extremity: Present: no calf tenderness, lower extremity edema Skin Exam: Present: other - dry scabs over dorsum of right foot Assessment/Plan - Problems/Diagnosis (1) Hypokalemia Problem: Acute Narrative: improved (2) Hyponatremia Problem: Acute Narrative: continue with hypertonic saline. recheck BMP at 12 noon. (3) Lymphedema of extremity Problem: Acute (4) Cellulitis Problem: Acute Qualifiers: Site of cellulitis of extremity: lower extremity Laterality: right Qualified Code(s): L03.115 - Cellulitis of right lower limb Narrative: on Cefdinir. viola try on corticosporin cream. (5) Hypertension Problem: Chronic Qualifiers: Hypertension type: essential hypertension Qualified Code(s): I10 - Essential (primary) hypertension (6) Rectal adenocarcinoma Problem: Chronic (7) Edema Problem: Acute Qualifiers: Edema type: unspecified Qualified Code(s): R60.9 - Edema, unspecified Narrative: will add LFT/PT/INR. H/O alcohol. Echo showed normal EF, RVSP 35. will do his CTS of the abdomen and pelvis on OPD basis.
[2018-11-29] MEDS ORDERED: MUPIROCIN 22 APPL TUBE TP ONE (09:42)
[2018-11-29 10:31] LABS: Albumin * 2.6 gm/dl (3.4-5.0); Bilirubin Direct 0.2 mg/dL (0.0-0.3); Bilirubin, Total 0.4 mg/dL (0.0-1.1); Bilirubin,Indirect 0.2 mg/dL (0.1-0.7); Chol/HDL Risk Ratio 2.5 mg/dL (3.3-5.0); Total Protein 7.6 gm/dL (6.2-8.2)
[2018-11-29] MEDS: TRIAMCINOLONE ACETONIDE 80 APPL TUBE TP SCH (11:51)
[2018-11-29 12:00] LABS: BUN/Creatinine Ratio 14.2 (9.0-21.6); Calcium * 8.9 mg/dL (7.9-10.9); Carbon Dioxide 37.3 mmol/L (24-32.6); Estimated Creat Clear 60.3; Potassium 3.3 mmol/L (3.4-4.6)
[2018-11-29] MEDS ORDERED: POTASSIUM CHLORIDE IN WATER 100 ML IV SCH (13:00)
[2018-11-29 15:09] LABS: Prothrombin Time (Patient) 10.4 Seconds (9.1-10.7)
[2018-11-29 15:20] LABS: INR 1.05 INR (0.92-1.08)
[2018-11-29 17:40] LABS: Anion Gap 8.3 mmol/L (6.8-13.8); BUN/Creatinine Ratio 16.5 (9.0-21.6); Calcium * 8.8 mg/dL (7.9-10.9); Carbon Dioxide 34.6 mmol/L (24-32.6); Estimated Creat Clear 63.2; Potassium 3.9 mmol/L (3.4-4.6)
[2018-11-29] MEDS: SODIUM CHLORIDE 3 % 500 ML IV SCH (19:09)
[2018-11-29 22:16] LABS: BUN/Creatinine Ratio 16.7 (9.0-21.6); Calcium * 9.1 mg/dL (7.9-10.9); Carbon Dioxide 33.1 mmol/L (24-32.6); Estimated Creat Clear 63.8; Potassium 4.1 mmol/L (3.4-4.6)
[2018-11-30 05:28] LABS: Hematocrit 38.6 % (42.0-52.0); Hemoglobin 12.6 gm/dL (13.5-18.0); Mean Cell Volume 90.8 fl (78-100); Mean Corpuscular Hemoglobin 29.6 pg (27-31); Mean Corpuscular Hgb Conc 32.6 g/dl (32-36); Mean Platelet Volume 9.7 fl (8-11.3); Neutrophil % 69.4 % (42-75.0); Platelet Count 310 K/mm3 (150-450); Red Blood Count 4.25 M/mm3 (4.7-6.0); Red Cell Distribution Width 12.6 % (11.5-14.0); White Blood Count 8.7 K/mm3 (4.0-10.5)
[2018-11-30 05:37] LABS: BUN/Creatinine Ratio 13.7 (9.0-21.6); Calcium * 8.6 mg/dL (7.9-10.9); Carbon Dioxide 30.9 mmol/L (24-32.6); Estimated Creat Clear 61.7; Potassium 3.9 mmol/L (3.4-4.6)
[2018-11-30] MEDS: PANTOPRAZOLE SODIUM 40 MG TABLET.EC PO SCH (07:09)
[2018-11-30] MEDS: MAGNESIUM OXIDE 400 MG TABLET PO SCH (08:23)
[2018-11-30] MEDS: ASPIRIN 81 MG TABLET.DR PO SCH (08:24)
[2018-11-30] MEDS: CEPHALEXIN MONOHYDRATE 500 MG CAPSULE PO SCH (08:24)
[2018-11-30] MEDS: METOPROLOL TARTRATE 100 MG TABLET PO SCH (08:27)
--- NOTE | 2018-11-30 08:29 | DS ---
(1) Hypokalemia Problem: Resolved (2) Hyponatremia Problem: Resolved (3) Lymphedema of extremity Problem: Acute (4) Cellulitis Problem: Acute Qualifiers: Site of cellulitis of extremity: lower extremity Laterality: right Qualified Code(s): L03.115 - Cellulitis of right lower limb (5) Hypertension Problem: Chronic Qualifiers: Hypertension type: essential hypertension Qualified Code(s): I10 - Essential (primary) hypertension (6) Rectal adenocarcinoma Problem: Chronic (7) Edema Problem: Acute Qualifiers: Edema type: unspecified Qualified Code(s): R60.9 - Edema, unspecified Description of Stay: Yaakov Blackwood is a 68-year-old white male with past medical history of rectal adenocarcinoma, GERD, depression, hypertension, lymphedema who was admitted on 11/27/2018 because of electrolyte imbalance- severe hyponatremia and hypokalemia. The patient 10 days [employer] had significant edema of his lower extremities which was weeping. The patient was started on Metolazone in addition to his Lasix and potassium by his primary care physician. Today he followed up with his primary care physician and his repeat blood work showed his sodium to be 122 with a potassium of 1.7. He was told to go to the emergency room. The patient received the 1 K rider and oral potassium 1 and he was started also on some 0.9 NSS. His repeat blood work shows his potassium to have gone up to 2.2 but his Sodium went down to 117. He had been having some lightheadedness with daily falls in the last 3 days at home. It was unclear if his symptoms weere form his diuresis and dehydration of part of the hyponatremia syndrome. His EKG showed normal sinus rate came with flattening of his T waves although this was not significantly changed from his prior EKG in 2017. Upon review , he also had hypokalemia at that time. He denies congestive heart failure, liver failure, kidney failure. His Echo was unremarkable and his BNP was only in the 200. He does have a history of rectal adenocarcinoma and possible pelvic LAD which could compress his venous system. Will schedule a CTS of the abdomen and pelvis as out patient. He has gained 4 kg since admission. Will restart his Furosemide with KCl. Follow up with his PCP on Monday with BMP. Procedures Performed: none Results and Findings: Pending Mircobiology Results 11/27/18 20:31 Blood Blood Culture - Preliminary NO GROWTH AFTER 48 HOURS Lab Pending Results 11/27/18 18:27: Sodium 117 L*, Plasma Sodium 117 L*, Potassium 2.3 L* D, Chloride 72 L, Carbon Dioxide 40.8 H, Anion Gap 6.5 L, BUN 23, Creatinine 1.59 H, Est GFR (Non-Af Amer) 46 L, BUN/Creatinine Ratio 14.5, Random Glucose 131 H, Calcium 9.1 11/27/18 20:31: Serum Osmolality 246 L 11/27/18 21:30: Ur Random Sodium 45 11/27/18 21:30: Urine Osmolality 301 11/27/18 22:35: Sodium 123 L, Plasma Sodium 124 L, Potassium 2.1 L*, Chloride 78 L, Carbon Dioxide 41.3 H, Anion Gap 5.8 L, BUN 22, Creatinine 1.46 H, Est GFR (Non-Af Amer) 51 L, BUN/Creatinine Ratio 15.1, Random Glucose 153 H, Calcium 8.3 11/28/18 01:19: Sodium 120 L, Plasma Sodium 121 L, Potassium 2.0 L*, Chloride 79 L, Carbon Dioxide 39.1 H, Anion Gap 3.9 L, BUN 22, Creatinine 1.54 H, Est GFR (Non-Af Amer) 48 L, BUN/Creatinine Ratio 14.3, Random Glucose 164 H, Calcium 8.3 11/28/18 01:20: Magnesium 2.1 11/28/18 05:10: Sodium 125 L, Plasma Sodium 125 L, Potassium 2.6 L D, Chloride 81 L, Carbon Dioxide 39.5 H, Anion Gap 7.1, BUN 21, Creatinine 1.28, Est GFR (Non-Af Amer) 59 L D, BUN/Creatinine Ratio 16.4, Random Glucose 123 H, Calcium 8.6, Magnesium 2.1 11/28/18 12:45: Sodium 124 L, Plasma Sodium 125 L, Potassium 2.6 L, Chloride 83 L, Carbon Dioxide 38.4 H, Anion Gap 5.2 L, BUN 19, Creatinine 1.41 H, Est GFR (Non-Af Amer) 53 L, BUN/Creatinine Ratio 13.5, Random Glucose 147 H, Calcium 8.8 11/28/18 17:30: Sodium 126 L, Plasma Sodium 127 L, Potassium 2.9 L, Chloride 84 L, Carbon Dioxide 38.3 H, Anion Gap 6.6 L, BUN 21, Creatinine 1.37, Est GFR (Non-Af Amer) 55 L, BUN/Creatinine Ratio 15.3, Random Glucose 136 H, Calcium 9.0, Magnesium 2.4 11/28/18 22:45: Sodium 129 L, Plasma Sodium 129 L, Potassium 3.3 L, Chloride 87 L, Carbon Dioxide 38.9 H, Anion Gap 6.4 L, BUN 22, Creatinine 1.27, Est GFR (Non-Af Amer) 60, BUN/Creatinine Ratio 17.3, Random Glucose 123 H, Calcium 9.2 11/29/18 05:20: Sodium 126 L, Plasma Sodium 126 L, Potassium 3.3 L, Chloride 88 L, Carbon Dioxide 36.7 H, Anion Gap 4.6 L, BUN 19, Creatinine 1.25, Est GFR (Non-Af Amer) 61, BUN/Creatinine Ratio 15.2, Random Glucose 117 H, Calcium 8.7 11/29/18 05:20: Total Bilirubin 0.4, Direct Bilirubin 0.2, Indirect Bilirubin 0.2, AST 20, ALT 16 L, Alkaline Phosphatase 135, Total Protein 7.6, Albumin 2.6 L, Triglycerides 59, Cholesterol 132, LDL Cholesterol 68 L, VLDL Cholesterol 12, HDL Cholesterol 52, Cholesterol/HDL Ratio 2.5 L 11/29/18 05:20: PT 10.4, INR (Anticoag Therapy) 1.05 11/29/18 11:49: Sodium 127 L, Plasma Sodium 127 L, Potassium 3.3 L, Chloride 88 L, Carbon Dioxide 37.3 H, Anion Gap 5.0 L, BUN 18, Creatinine 1.27, Est GFR (Non-Af Amer) 60, BUN/Creatinine Ratio 14.2, Random Glucose 105, Calcium 8.9 11/29/18 17:25: Sodium 129 L, Plasma Sodium 129 L, Potassium 3.9, Chloride 90 L, Carbon Dioxide 34.6 H, Anion Gap 8.3, BUN 20, Creatinine 1.21, Est GFR (Non-Af Amer) 63, BUN/Creatinine Ratio 16.5, Random Glucose 116 H, Calcium 8.8 11/29/18 22:05: Sodium 128 L, Plasma Sodium 128 L, Potassium 4.1, Chloride 94 L, Carbon Dioxide 33.1 H, Anion Gap 5.0 L, BUN 20, Creatinine 1.20, Est GFR (Non-Af Amer) 64, BUN/Creatinine Ratio 16.7, Random Glucose 128 H, Calcium 9.1 11/30/18 05:15: WBC 8.7 D, RBC 4.25 L, Hgb 12.6 L, Hct 38.6 L, MCV 90.8, MCH 29.6, MCHC 32.6, RDW 12.6, Plt Count 310, MPV 9.7, Immature Gran % (Auto) 0.60 H, Immature Gran # (Auto) 0.05 H, Neutrophils % 69.4, Lymphocytes % 15.9 L, Monocytes % 10.6 H, Eosinophils % 2.7, Basophils % 0.8, Nucleated RBC % 0.0, Neutrophils # 6.0, Lymphocytes # 1.38 L, Monocytes # 0.9, Eosinophils # 0.2, Abs olute Basophils 0.1 11/30/18 05:15: Sodium 133, Plasma Sodium 133, Potassium 3.9, Chloride 96 L, Carbon Dioxide 30.9, Anion Gap 10.0, BUN 17, Creatinine 1.24, Est GFR (Non-Af Amer) 61, BUN/Creatinine Ratio 13.7, Random Glucose 125 H, Calcium 8.6 Discharge Location: Home Disposition: Home self-care Condition: Stable Discharge Activity: Activity as tolerated Discharge Diet: Low fat/chol, Other - Fluid restriction to 1.5 L/day till his return appointment Referrals: Amrit Tan MD [Primary Care Provider] - Additional Patient Instructions (free text): -Please make TCM appointment unless fci discharge. Thank you! Sharlene @ [phone]. Follow up with Dr Tan on MondayDecember 05 at 2:45pm. Will schedule a CTS of abdomen and pelvis with and without contrast/BMP. Prescriptions (Any new or edited meds): Furosemide [Lasix] 40 mg PO DAILY #30 tab Potassium Chloride [K-Dur] 20 meq PO DAILY #30 tab Triamcinolone Acetonide [Kenalog 0.025% Cream] 1 appl TOPICAL DAILY #1 tube Complete Home Medications List: Complete Home Medication List: Aspirin [Aspirin Enteric Coated] 81 mg PO DAILY 11/10/14 atorvastatin 20 mg tablet 20 mg PO DAILY #90 tab 07/05/18 omeprazole 40 mg capsule,delayed release 40 mg PO DAILY #90 cap 07/05/18 Metoprolol Tartrate 100 mg PO BID 11/27/18 Cephalexin 500 mg PO BID 11/28/18 Escitalopram Oxalate [Lexapro] 20 mg PO DAILY 11/28/18 Multivitamin [Multivitamins] 1 ea PO DAILY 11/28/18 Nystatin/Triamcin [Nystatin-Triamcinolone Ointm] 60 gm TOPICAL BID 11/28/18 Furosemide [Lasix] 40 mg PO DAILY #30 tab 11/30/18 Potassium Chloride [K-Dur] 20 meq PO DAILY #30 tab 11/30/18 Triamcinolone Acetonide [Kenalog 0.025% Cream] 1 appl TOPICAL DAILY #1 tube 11/30/18 Amb Orders for Discharge: CT Abdomen/Pelvis W/WO Time Frame: 3 Days, Location: Radiology Basic Metabolic Panel Time Frame: 12/03/18, Location: Laboratory
[2018-11-30] MEDS: ENOXAPARIN SODIUM 40 MG/0.4 ML SYRG SC SCH (08:31)
[2018-11-30] MEDS: TRIAMCINOLONE ACETONIDE 80 APPL TUBE TP SCH (08:34)
[2018-11-30 10:04] LABS: Anion Gap 8.9 mmol/L (6.8-13.8); Calcium * 8.8 mg/dL (7.9-10.9); Carbon Dioxide 31.9 mmol/L (24-32.6); Estimated Creat Clear 63.2; Potassium 3.8 mmol/L (3.4-4.6)
[2018-11-30 11:09] VITALS: BP 134/70
== END 2018-11-30 11:29 | disposition home or self-care (01) | DRG 641 ==
LOC: ER 17:20 → MS 18:23
PROVIDERS: ADMIT Internal Medicine; ATTEND Internal Medicine
CPT/HCPCS: 36415; 80048; 80053; 80061; 80074; 80076; 83519; 83735; 83880; 83930; 83935; 84300; 85025; 85610; 85652; 87040; 90686; 93005; 99214; 99284; G0463